=== PATIENT | male | born 1970 | race Caucasian/White ===

== ENCOUNTER 2018-07-06 07:56 | Emergency (ER) | payer OTHER ==
--- NOTE | 2018-07-06 08:30 | EDPHY ---
HPI/HX/ROS/PE/MDM Narrative: CHIEF COMPLAINT: Left-sided arm and face pain HISTORY OF PRESENT ILLNESS: The patient is a 48 y/o male complaining of left-sided numbness. Several weeks ago he was having intercourse when he developed a severe headache for which he took ibuprofen. This headache was primarily in the right back of his head and "stopped him in his tracks". Since developing the severe headache he has had moderate intermittent headaches and neck pain. He has not had any speech difficulties. He has not seen a doctor regarding the headache. Around this time he also changed to a Keto diet. Starting Thursday, 2 days ago, he developed an achy pain in his left biceps. Prior to developing the biceps pain he was moving a dresser up a flight of stairs and was playing with his kids. On Thursday, the left arm pain started to radiate up into his shoulder. He also developed left- sided facial numbness and left lower extremity numbness/tingling. Currently he has a minor amount of left-sided numbness and pain radiating down his leg. He has also felt mildly short of breath which he was unsure if it was due to feeling anxious about his symptoms. His brother had an NH and stent placed at 42 y/o, his father was less than 60 y/o when he had his first NH and stent. No fever, chills, chest pain, palpitations, vomiting, diarrhea, urinary complaints, lightheadedness. This patient is a difficult historian. REVIEW OF SYSTEMS: Aside from elements discussed in the HPI, a comprehensive 10-point review of systems was reviewed and is negative. PAST MEDICAL HISTORY: Denies SOCIAL HISTORY: at bedside, lives in [facility] VITAL SIGNS: Reviewed by me GENERAL: Well-developed, well-nourished, resting comfortably in no respiratory distress. HEENT: Atraumatic. Eyes: No icterus, no injection. Mouth: moist mucous membranes. No erythema or lesions. Neck: supple with no adenopathy. LUNGS: Clear to auscultation bilaterally, no wheezes, rhonchi or rales. CARDIAC: Regular rate and rhythm, no rubs, murmurs or gallops. No carotid murmur. ABDOMEN: Soft, nontender, nondistended, bowel sounds normal. BACK: No CVA tenderness. EXTREMITIES: No trauma. No edema. Range of motion is normal throughout. NEURO: Alert and oriented, cranial nerves II through XII are intact. Motor strength 5 over 5 in all major muscle groups. Sensation intact to light touch. SKIN: Warm and dry, no rash. PSYCHIATRIC: Normal mentation, no agitation. Portions of this note were transcribed by a medical insurance verifier. I personally performed a history, physical exam, medical decision making, and confirmed accuracy of information the transcribed note. ED Course: The patient is a 48 y/o male presenting with left-sided numbness onset 2 days ago, secondary to a severe headache several days ago. He has a normal cardiac and neurological exam. Head CT, head and neck CTA, EKG, and labs ordered. 0813: 12-LEAD EKG: Please see the full report in [facility]. My interpretation: Sinus rhythm with a rate of 55, T wave inversion. 0847: Patient's troponin is negative. 0951: I spoke with the radiologist who reports that the head CT is negative; CTA 's still pending. 0958: I spoke with Dr. Sanderson, radiologist, who reports the patient has normal CTA findings. 1036: I consulted with Dr. Stauffer, neurologist, regarding this patient. Brain MRI ordered. 1229: I spoke with the radiologist who reports that the patient has a normal brain MRI. At this point, feel patients neurologic evaluation is complete. However, symptoms may be related to cardiac causes. Discussed repeat troponin (as it has been 4 hours) and repeat EKG with patient. He does have risk factors for ACS and a strong family history. 1250: REPEAT 12-LEAD EKG: Please see the full report in [facility]. My interpretation: Sinus rhythm with a rate of 55, patient has a new T-wave inversion in lead V3. 1318: I consulted with Dr. Castañeda, crisis counselor, regarding this patient. He will consult on this patient. 1359: I discussed the patient's evaluation with Dr. Castañeda after he consulted on the patient. Plan is been made that patient will undergo a coronary CT a while in the emergency department to evaluate his coronary arteries. 1715: It patient's CT a has been completed. Reported to me by Dr. Sanderson as revealing no significant stenosis. There is some minor coronary bridging. Dr Castañeda will re-evaluate patient and make plans for disposition. See Dr Castañeda's consultation. 18:26: Per nursing notes, Dr Castañeda at bedside. Disposition per Dr Castañeda. MDM: Differential diagnosis of the patient's presenting complaint was considered including but not limited to stroke, aneurysmal bleeding, dissection, acute coronary syndrome, electrolyte abnormalities, paresthesias. - Data Points Imaging Results: Head CT 07/06/18 08:38 Impression: Normal brain. No acute intracranial hemorrhage or evidence of ischemia. Findings discussed with Emergency Department physician, Dr. Loni Casarez on July 06, 2018 at 0950 hours. Head CTA 07/06/18 08:38 Impression: 1. Normal intracranial arterial circulation. No evidence of embolic disease or aneurysm. 2. Patent venous system. Findings were called to the Emergency Department, sudha Clark scribe working with physician, Dr. Loni Casarez on July 06, 2018 at 0957 hours. Neck CTA 07/06/18 08:38 Impression: Widely patent carotid and vertebral arteries. No dissection or occlusion. Measurement of carotid stenosis is based on the residual internal carotid diameter with [place] Symptomatic Carotid Endarterectomy Trial (NASCET) based stenosis levels. Findings were called to the Emergency Department, kg Clarkibe working with physician, Dr. Loni Casarez on July 06, 2018 at 0957 hours. Brain MRI 07/06/18 10:40 Impression: Normal MRI of the brain without contrast. Findings and recommendations discussed with Emergency Department physician, Loni Casarez MD at 12:29 hour, 07/06/2018. Final report concurs with initial preliminary interpretation. Imaging: Discussed imaging studies w/ banquet server on call Radiologist, I viewed and interpreted images myself Laboratory Results: Laboratory Results 07/06/18 08:40 07/06/18 08:40 Medications Given: Discontinued Medications Metoprolol Tartrate (Lopressor) 50 mg PO EDNOW ONE Stop: 07/06/18 14:18 Last Admin: 07/06/18 14:35 Dose: 50 mg Point of Care Test Results: Chemistry 07/06/18 07/06/18 12:52 08:22 POC Troponin I 0.00 ng/mL ng/mL 0.00 ng/mL ng/mL (0.00-0.08) (0.00-0.08) General Time Seen by Provider: 07/06/18 08:15 Initial Vital Signs: Initial Vital Signs Temperature (C) 36.5 C 07/06/18 08:00 Heart Rate 73 07/06/18 08:00 Respiratory Rate 16 07/06/18 08:00 Blood Pressure 137/100 H 07/06/18 08:00 O2 Sat (%) 98 07/06/18 08:00 O2 Delivery Mode Room Air Allergies/Adverse Reactions: No Known Allergies Allergy (Unverified 07/06/18 07:59) Home Medications: Medication Instructions Recorded NK [No Known Home Meds] 07/06/18 Departure - Departure Disposition: Home, Routine, Self-Care Clinical Impression: Numbness and tingling, Left arm pain Condition: Good Instructions: Paresthesia (ED), Arm Pain (ED) Additional Instructions: Follow up with Dr. Castañeda this week as discussed. Return to the Emergency Department for fever, chest pain, shortness of breath, increasing pain or other worsening of condition. As we discussed, it is impossible to fully rule out heart disease as the cause of your the symptoms in the emergency department. We would be happy to reevaluate you and observe you in the hospital at any time. Referrals: EMILY CHAMPION [Primary Care Provider] - As per Instructions Isrrael Castañeda MD [Medical Doctor] - As per Instructions Report Scribed for: Loni Casarez Report Scribed by: Marleen Pereira Date of Report: 07/06/18 Time of Report: 08:55
[2018-07-06 08:44] LABS: PLATELET COUNT 311 10^3/uL (150-400)
[2018-07-06] MEDS ORDERED: IOPAMIDOL (ISOVUE 370) 100 ML BTL IV ONE (09:19)
[2018-07-06] MEDS ORDERED: METOPROLOL TARTRATE 50 MG TAB PO ONE (14:17)
[2018-07-06] MEDS ORDERED: METOPROLOL TARTRATE 50 MG TAB ONE (14:32)
--- NOTE | 2018-07-06 14:51 | GCON ---
CARDIOLOGY CONSULTATION DATE OF CONSULTATION: 07/06/2018 REFERRING PHYSICIAN: Loni Casarez MD INDICATION FOR CONSULTATION: Left arm, left shoulder, left anterior chest discomfort with new onset of paresthesias. HISTORY OF PRESENT ILLNESS: This patient is a pleasant 48-year-old gentleman with no past medical hi story who was in his usual state of health until Thursday evening. While at rest, he developed onset o f left arm pain that radiated into his left shoulder and crept into his left anterior chest. Symptom s have persisted over the last 2 days, although they have waxed and waned in intensity. Yesterday, pascale fam also developed left-sided paresthesias on his left side of face, left arm, into his left leg. His left arm and shoulder symptoms have also persisted. This morning with continued symptoms, he present ed to [facility] for further evaluation. Initial ECG on presentation at 0813 this mo rning demonstrated sinus rhythm at 55 beats per minute with T-wave inversions in leads II, III, and a VF as well as V3 through V6. His initial troponin was negative. This patient has no known history of hypertension, hyperlipidemia, diabetes. He is a lifelong nonsmo ker. This patient does have some family history of premature coronary artery disease. Both his father and brother suffered myocardial infarctions at the age of 39. His paternal uncle had a myocardial infar ction in his early 50s. In the setting of complaints of paresthesias, as well as a recent headache during intercourse, his wo rkup included a CT of the head and neck, as well as MRI of the brain, which were unremarkable. A followup ECG demonstrated progression of T-wave inversions now including V3 through V6, as well as continued T-wave inversion in the inferior leads. At the time of my exam, he continues to have left arm and shoulder symptoms with radiation into the l eft anterior chest. He denies any complaints of shortness of breath, dyspnea, PND, orthopnea, or lower extremity edema. He has no complaints of palpitations, dizziness, lightheadedness, near syncope, or syncope. No compl aints of PND, orthopnea, or lower extremity edema. He has no complaints of exertional intolerance or fatigue. No recent viral illness. No complaints of fevers, chills, sweats, nausea, or vomiting. PAST MEDICAL HISTORY: None. MEDICATIONS: None. ALLERGIES TO MEDICATIONS: None. SOCIAL HISTORY: He is . He lives with his here in [place]. He works in sales. He has 2 children. FAMILY HISTORY: As stated above, father and brother both suffered myocardial infarctions at the age of 39. Paternal uncle had myocardial infarctions in his early 50s. PHYSICAL EXAMINATION: VITAL SIGNS: Blood pressure 116/83, heart rate of 66, respiratory rate 14, ox ygen saturation 96% on room air. GENERAL: He is awake, alert, oriented, appropriate, in no apparent distress. NECK: There is no evidence of JVP or carotid bruits. LUNGS: Clear to auscultation bila terally. CARDIAC: S1, S2. Regular rate and rhythm. No murmurs, rubs, or gallops. PMI is not disp laced. ABDOMEN: Soft, nontender, nondistended. No pulsatile mass or abdominal bruit. EXTREMITIES: There is no evidence of cyanosis, clubbing or edema. DATA: White blood cell count 5.57, hemoglobin 16.4, hematocrit 46.3, platelets 311. Sodium of 140, potassium 4.4, chloride 105, bicarb 25, BUN 17, creatinine 1. Glucose 94. Troponin on admission 0. Repeat troponin 4 hours later was 0. Workup including CT of the head, CTA of the neck, and MRI of the brain were unremarkable. IMPRESSION: 1. Left arm, shoulder, and chest pain. 2. Abnormal ECG with progressive T-wave inversions since admission with most recent ECG demonstratin g T-wave inversions in leads V3 through V6 as well as II, III, and aVF. 3. No previous ECG for comparison. 4. Strong family history of premature coronary disease with father and brother with myocardial infar ctions at the age of 39. 5. Ongoing symptoms of unclear etiology with negative neurological workup. PLAN: 1. Recommend CTA of the coronary arteries to be performed today. 2. We will provide patient with metoprolol tartrate 50 mg p.o. x1 prior to procedure. 3. We will follow up with patient after completion of CTA of the coronary arteries. /[id number]/MODL
[2018-07-06] MEDS ORDERED: IOPAMIDOL (ISOVUE-370) 150 ML BTL IV ONE (15:15)
--- NOTE | 2018-07-06 16:08 | CPEKG ---
Test Reason : OPEN Blood Pressure : / mmHG Vent. Rate : 055 BPM Atrial Rate : 052 BPM P-R Int : 166 ms QRS Dur : 078 ms QT Int : 413 ms P-R-T Axes : 004 071 -28 degrees QTc Int : 395 ms Sinus rhythm Nonspecific T abnormalities, diffuse leads Confirmed by Loni Casarez ([id number]) on 07/06/2018 4:08:00 PM Referred By: Confirmed By:Loni Casarez
--- NOTE | 2018-07-06 16:10 | CPEKG ---
Test Reason : OPEN Blood Pressure : / mmHG Vent. Rate : 055 BPM Atrial Rate : 056 BPM P-R Int : 165 ms QRS Dur : 077 ms QT Int : 535 ms P-R-T Axes : -01 038 -16 degrees QTc Int : 512 ms Sinus rhythm Nonspecific T abnrm, anterolateral leads Borderline ST elevation, anterior leads Prolonged QT interval new TWI v3 in comparison to prior from 4 hr ago Confirmed by Loni Casarez ([id number]) on 07/06/2018 4:09:36 PM Referred By: Confirmed By:Loni Casarez
[2018-07-06 19:19] VITALS: BP 120/74
== END 2018-07-06 19:18 | disposition home or self-care (01) ==
DX: M79.602 Pain in left arm (principal); R20.2 Paresthesia of skin; R51 Headache; E11.9 Type 2 diabetes mellitus without complications; I10 Essential (primary) hypertension; E78.5 Hyperlipidemia, unspecified; Z82.49 Family history of ischemic heart disease and other diseases of the circulatory system
CPT/HCPCS: 84484-ER; Q9967